=== PATIENT | male | born 1980 | race Caucasian/White ===

== ENCOUNTER 2021-08-05 06:52 | Emergency (ER) | payer BC, OTHER ==
[2021-08-05 08:00] LABS: CORONAVIRUS COVID-19 NAA POSITIVE (NEGATIVE); INFLUENZA A NAA NEGATIVE (NEGATIVE); INFLUENZA B NAA NEGATIVE (NEGATIVE)
== END 2021-08-05 08:20 | disposition home or self-care (01) ==
LOC: MW.ED 06:52
DX: U07.1 COVID-19 (principal); Z88.0 Allergy status to penicillin; Z72.0 Tobacco use
CPT/HCPCS: 0240U; 99283